=== PATIENT | male | born 1945 | race Native Hawaiian/Other Pacific Islander ===

== ENCOUNTER 2016-04-26 12:24 | Outpatient (CLI) | payer OTHER, MEDICARE ==
[~2016-04-26 12:24] MED LIST: BENICAR HCT1 TA2 PO; CARDURA XL8 MG PO; FISH OIL1 C10 PO; NABUMETONE750 MG OR; OXYC10TAB PO
[2016-04-26 12:58] LABS: PLATELET COUNT 239 K/uL (142-355)
[2016-04-26 13:48] LABS: POTASSIUM 3.9 mmol/L (3.6-5.2)
== END 2016-04-26 19:23 | disposition home or self-care (01) ==
LOC: LABW 12:24
PROVIDERS: Nurse Practitioner
DX: I10 Essential (primary) hypertension (principal); E55.9 Vitamin D deficiency, unspecified; E78.00 Pure hypercholesterolemia, unspecified; R53.83 Other fatigue
CPT/HCPCS: 36415; 80053; 80061; 82306; 82607; 85027

== ENCOUNTER 2018-10-30 12:44 | Outpatient (CLI) | payer OTHER, MEDICARE ==
[2018-10-30 13:23] LABS: PLATELET COUNT 201 K/uL (142-355)
== END 2018-10-30 22:50 | disposition home or self-care (01) ==
LOC: LABW 12:44
PROVIDERS: Nurse Practitioner
DX: I10 Essential (primary) hypertension (principal); E78.00 Pure hypercholesterolemia, unspecified; N40.1 Benign prostatic hyperplasia with lower urinary tract symptoms; E55.9 Vitamin D deficiency, unspecified; R53.82 Chronic fatigue, unspecified; E53.8 Deficiency of other specified B group vitamins
CPT/HCPCS: 36415; 80053; 80061; 82306; 82607; 84153; 84443; 85027

== ENCOUNTER 2018-10-30 13:20 | Outpatient (CLI) | payer OTHER | END 2018-10-30 22:50 | disposition home or self-care (01) | LOC: RAD 13:20 | DX: Z87.891 Personal history of nicotine dependence (principal) ==

== ENCOUNTER 2020-07-02 13:58 | Outpatient (CLI) | payer OTHER | END 2020-07-02 22:20 | disposition home or self-care (01) | LOC: US 13:58 | PROVIDERS: ATTEND Nurse Practitioner Family | DX: I10 Essential (primary) hypertension (principal) ==

== ENCOUNTER 2020-07-16 12:18 | Outpatient (CLI) | payer OTHER ==
[2020-07-16 12:53] LABS: POTASSIUM 4.7 mmol/L (3.6-5.2)
== END 2020-07-16 22:43 | disposition home or self-care (01) ==
LOC: LABW 12:18
PROVIDERS: ATTEND Nurse Practitioner
DX: I10 Essential (primary) hypertension (principal)
CPT/HCPCS: 36415; 80048; 82088; 84244

== ENCOUNTER 2020-07-17 15:52 | Outpatient (CLI) | payer OTHER | END 2020-07-17 21:38 | disposition home or self-care (01) | LOC: LABW 15:52 | PROVIDERS: ATTEND Nurse Practitioner | DX: I10 Essential (primary) hypertension (principal) | CPT/HCPCS: 83835; 84585 ==

== ENCOUNTER 2020-08-11 10:13 | Outpatient (CLI) | payer OTHER ==
[2020-08-11 11:51] LABS: POTASSIUM 4.2 mmol/L (3.6-5.2)
== END 2020-08-11 19:31 | disposition home or self-care (01) ==
LOC: LABW 10:13 → RESP 10:13
PROVIDERS: ATTEND Specialist
DX: E87.5 Hyperkalemia (principal); Z09 Encounter for follow-up examination after completed treatment for conditions other than malignant neoplasm; I10 Essential (primary) hypertension; R94.31 Abnormal electrocardiogram [ECG] [EKG]
CPT/HCPCS: 36415; 80048

== ENCOUNTER 2020-09-11 11:52 | Outpatient (CLI) | payer OTHER ==
[2020-09-11 12:31] LABS: POTASSIUM 4.2 mmol/L (3.6-5.2)
== END 2020-09-11 22:00 | disposition home or self-care (01) ==
LOC: LABW 11:52
PROVIDERS: ATTEND Specialist
DX: R35.8 Other polyuria (principal); Z79.899 Other long term (current) drug therapy
CPT/HCPCS: 36415; 80048

== ENCOUNTER 2021-03-19 08:35 | Outpatient (CLI) | payer OTHER | END 2021-03-19 18:00 | disposition home or self-care (01) | LOC: INF 08:35 | PROVIDERS: ATTEND Internal Medicine Endocrinology, Diabetes & Metabolism | DX: Z23 Encounter for immunization (principal) ==

== ENCOUNTER 2021-06-17 09:30 | Outpatient (CLI) | payer OTHER | END 2021-06-17 19:24 | disposition home or self-care (01) | LOC: US 09:30 | PROVIDERS: ATTEND Nurse Practitioner Family | DX: N28.89 Other specified disorders of kidney and ureter (principal) ==

== ENCOUNTER 2021-12-01 14:18 | Outpatient (CLI) | payer OTHER, MEDICARE | END 2021-12-01 21:38 | disposition home or self-care (01) | LOC: RAD 14:18 | PROVIDERS: ATTEND Internal Medicine | DX: M54.41 Lumbago with sciatica, right side (principal) ==